=== PATIENT | male | born 1975 | race Caucasian/White ===

== ENCOUNTER 2017-08-30 00:29 | Emergency (ER) | payer SELFPAY ==
[2017-08-30] MEDS: DIPHTH/TET/ACEL PERTUSS (ADULT) 0.5 ML VIAL IM* (02:09)
[2017-08-30] MEDS: LIDOCAINE 1%/EPI 30 ML INJ INJ (02:29)
[2017-08-30] MEDS: LIDOCAINE 1%/EPI (MDV) 50 ML INJ INJ (02:29)
== END 2017-08-30 04:04 | disposition home or self-care (01) ==
LOC: E/R 00:29
DX: S01.81XA Laceration without foreign body of other part of head, initial encounter (principal); Y08.89XA Assault by other specified means, initial encounter; Y92.9 Unspecified place or not applicable; Z23 Encounter for immunization; Z87.891 Personal history of nicotine dependence
CPT/HCPCS: 12053; 70140; 90471; 90715; 99283-25